=== PATIENT | male | born 1960 | race Caucasian/White ===

== ENCOUNTER 2023-11-12 12:09 | Outpatient (CLI) | payer OTHER, SELFPAY ==
[2023-11-12 12:42] LABS: Anion Gap 12 mmol/L (4-12); Blood Urea Nitrogen 23 mg/dL (9-20); Calcium 9.4 mg/dL (8.4-10.2); Carbon Dioxide 25 mmol/L (22-30); Chloride 100 mmol/L (98-107); Estimated Glomerular Filt Rate 47; Glucose 120 mg/dL (65-110); Sodium 137 mmol/L (137-145)
[2023-11-12 13:32] LABS: Hematocrit 52.8 % (42.0-52.0); Hemoglobin 17.2 g/dL (14.0-18.0)
== END 2023-11-12 12:10 | disposition home or self-care (01) ==
LOC: ANHSURGERY 12:19
PROVIDERS: Anesthesiology; PCP Physician Assistant; Visit Provider Surgery Plastic and Reconstructive Surgery
DX: N62 Hypertrophy of breast (principal)
CPT/HCPCS: 36415; 80048; 85014; 85018

== ENCOUNTER 2023-11-15 01:02 | Day surgery (SDC) | payer OTHER, SELFPAY ==
[2023-11-08 14:25] VITALS: BMI 40.4
--- NOTE | 2023-11-08 14:58 | SUR.PREOP ---
Report to the Outpatient Waiting Room, entrance under the green pavilion located off [facility], at time 1000 on date 11/15/2023. Planned Procedure Time:1200.? Time changes happen often and if your time is changed the preop area will call you the afternoon before. - You and your visitor will be asked to self-screen and do not enter if you have any COVID symptoms. Please call surgeon if you need to reschedule. - A mask is optional within the hospital at this time. Patients may have clear liquids (water, carbonated beverages, clear teas, apple juice) until 3 hours prior to surgery with a maximum of 20 ounces. - No food from midnight until time of surgery and no smoking - Infants may have breast milk until 4 hours before surgery, formula 6 hours prior to surgery. - Children will be allowed to drink immediately following surgery.? If applicable, please bring a bottle or sippy cup to assist with drinking. Juice, water, soda, and popsicles are readily available.? For infants on formula, please bring formula the day of surgery.? Pacifiers are allowed. Take only the following medications with a SIP of water on the morning of surgery: Breo ellipta, nasal spray DO NOT STOP ANY OF YOUR OTHER PRESCRIPTION MEDICATIONS PRIOR TO SURGERY EXCEPT THE FOLLOWING Medications to discontinue per physician: Aspirin per Dr. Sosa, Multivitamin per Anesthesia Date to take last dose: vitamin- 3 days, Aspirin stopped 11/01/23 Please no make-up, nail lithuanian, hairspray, perfume, deodorant, or body powder the day of surgery.? No jewelry (including any body piercings) or valuables the day of surgery, leave them at home.? Please take a shower or bath the night before, or the morning of, surgery with an antibacterial soap.? Wear comfortable, loose fitting clothing.? Children are encouraged to wear pajamas. - Jewelry must be removed prior to entering the operating room.? Rings and piercings that are not removed may be cut off. - The hospital will not accept responsibility for valuables.? - Please leave all valuables, including medications, at home the day of surgery. If you are going home after surgery, a licensed transit bus driver must drive you home.? - NO public transportation without another adult if you receive anesthesia. - We recommend that an adult stay with you for 24 hours following discharge. - We also recommend that you do not drive, make important decision, drink alcoholic beverages, or take any drugs that were not prescribed by your health care provider for at least 24 hours after your discharge time. For Pediatric surgeries, we recommend two adults accompany the child home. Follow any additional instructions given to you from your surgeon. Telephone instructions given to patient and asked if any additional questions and then verbalized understanding. Patient advised to call surgeon office or pre surgery nurse liaison [phone] if any additional questions.
[2023-11-15] VITALS (12 sets, daily range): BP systolic 136–205; BP diastolic 57–90; PULSE 70–96; RESP 14–18; TEMP 36.3–36.4; O2SAT 94–100
--- NOTE | 2023-11-15 08:42 | WPDANESEPPF ---
Anes - Initial Pre Proc Eval Procedure: Operation Date: 11/15/23 12:00 Proposed Procedures p Treatment of Gynecomastia with Liposuction and Skin Excision - Sumit Sosa MD Date/Time: 11/15/23 08:42 Surgeon: Sumit Sosa MD Pre Op Diagnosis: gynecomastia Patient Data Age: 63 Gender: M Height: 1.68 m Weight: 113.6 kg Allergies Allergy/AdvReac Type Severity Reaction Status Date / Time No Known Allergies Allergy Verified 11/15/23 10:18 Home Medications Medication Instructions Recorded Confirmed Type allopurinol 100 mg tablet 100 mg PO DAILY 11/08/23 11/08/23 History aspirin 81 mg tablet 81 mg PO DAILY 11/08/23 11/08/23 History ezetimibe 10 mg tablet (Zetia) 10 mg PO DAILY 11/08/23 11/08/23 History fluticasone furoate 100 See Rx Instructions .Route .COMPLEX 11/08/23 11/08/23 History mcg-vilanterol 25 mcg/dose inhalation powder (Breo Ellipta) fluticasone propionate 50 2 spray intranasal DAILY 11/08/23 11/08/23 History mcg/actuation nasal spray,suspension levocetirizine 5 mg tablet (Xyzal) 5 mg PO DAILY 11/08/23 11/08/23 History lisinopril 20 1 tablet PO DAILY 11/08/23 11/08/23 History mg-hydrochlorothiazide 12.5 mg tablet multivitamin with minerals-folic 0.4 tablet PO DAILY 11/08/23 11/08/23 History acid 0.4 mg tablet rosuvastatin 40 mg tablet 40 mg PO DAILY 11/08/23 11/08/23 History Patient hx anesthesia problems: none Family hx anesthesia problems: none Results Review: All pre-operative results and documents have been reviewed as part of the pre-operative evaluation. [facility] Past Medical History Medical History (Updated 11/15/23 @ 08:43 by Thomas Garcia DO) Gout Hyperlipidemia Hypertension GARY (obstructive sleep apnea) CPAP Social History Social History Smoking packs per day: 1 Smoking cigarettes per day: 20.0 Years smoked: 20 Smoking pack-years: 20.00 Smoking status: Former smoker Tobacco type: cigarettes Smoking end date: 10/10/99 Alcohol intake: current Drinks per week: 2 Substance use: never Living arrangements: with family Spiritual care concerns: No Anes - Eval Final PreProcedure Day of Procedure 11/15/23 08:42 Patient weight: morbidly obese Heart: regular rate and rhythm Lungs: clear to auscultation Airway: Mallampati scale class II Neurological: alert and oriented Last oral intake: >/= 8 hours ASA classification: III Emergent: no Anesthetic plan: proceed Anesthesia type and monitoring: general ETT and standard monitoring Results Review: All pre-operative results and documents have been reviewed as part of the pre-operative evaluation. Informed Consent: The patient's anesthetic plan and its attendant risks and benefits were discussed with the patient/family/POA. Questions were solicited and answers provided to the satisfaction of the patient/family/POA.
[2023-11-15] MEDS: LACTATED RINGERS 1,000 ML 30 ML IV CONT ×3 (10:33→16:32)
[2023-11-15 11:33] LABS: Urine Cotinine NEGATIVE
--- NOTE | 2023-11-15 11:36 | WPDHPUPDATE1 ---
History and Physical Update Update Date/Time: 11/15/23 11:36 History and Physical has been reviewed, including an updated exam of the patient. There are NO changes in the patient's condition. Risks, benefits, and alternatives have been discussed and questions answered. Patient agrees to proceed with procedure.
--- NOTE | 2023-11-15 11:36 | W.PM.PROC2 ---
Procedure Note - Detailed Date of Procedure 11/15/23 Pre-op Diagnosis gynecomastia Post-op Diagnosis Same Procedure Performed Bilateral excision gynecomastia with suction lipectomy and skin excision. Surgeon Sumit Sosa MD Anesthesia General Findings Lipoaspirate: 3,000 cc Description of Procedure He is here today for the above procedure. Previously and again today the risks, benefits, alternatives were discussed in extensive detail. I wanted him to be very realistic about the risks involved as well as expectations. We discussed aftercare and what to monitor for. Discussed realistic expectations of outcome. Made sure I answered all of questions to satisfaction today and consent was obtained. He was marked in the preoperative holding area with his verification. The patient was taken to the operating room placed supine on the operating table. Anesthesia was provided by anesthesiology. Placed prone on the operating room table. Prepped and draped in a standard sterile fashion. A surgical time-out was taken. Stab incisions were made and I tumesced with a tumescent solution. I then proceeded with suction lipectomy based on S.A.F.E. technique using a 5mm basket and 4mm Kianna cannula. This was in multiple planes and passes and based on pre-operative planning, intraoperative observation, and rolling pinch test which was in full agreement. Access sites closed with 3-0 Nylon. Patient was then transferred to a stretcher and returned to the bed supine. Prepped and draped in a standard sterile fashion. Stab incisions were made and I tumesced with a tumescent solution. I then proceeded with suction lipectomy based on S.A.F.E. technique using a 5mm basket and 4mm Kianna cannula. This was in multiple planes and passes and based on pre-operative planning, intraoperative observation, and rolling pinch test which was in full agreement. A 15 blade was used to make a stab incision along the planned incision line. I elevated inferiorly estimating the excess skin to be resected with limited undermining. Also elevated a small area superior for NAC inset. The inferior flap was marked and a pedicle with the NAC was deepithelialized. Excess skin was trimmed and I closed with 2-0 Vicryl 3 point suture. I marked out the NAC for new location 28-32mm and this tissue was deepithelialized then incised for NAC inset. Areola inset with 3-0 Monocryl and 4-0 Monocryl with tissue glue. Incision was closed with 2-0 Vicryl, 3-0 Monocryl, and running subcuticular 4-0 Monocryl. Dressing was placed. Patient was awoke and taken to PACU without difficulty. All instrument and sponge counts were correct at the end of the case. Estimated Blood Loss 100 Drains No Packing No Pathology None sent Complications No immediate complications Condition Stable Disposition PACU
[2023-11-15] MEDS: TRANEXAMIC ACID 1,000MG/ISO100 1,000 MG/100 ML BAG 200 MG IVPB (11:59)
[2023-11-15] MEDS: ceFAZolin 2 GM/D5W 50 ML 2 GM/50 ML BAG IVPB (12:25)
[2023-11-15] MEDS: LACTATED RINGERS IRRIG 1,000 ML, LIDOCAINE HCL 1% LOCAL INJ 50 ML, EPINEPHrine HCL INJ ... INFILTRATE (16:05)
[2023-11-15] MEDS: LABETALOL HCL INJ 100 MG/20 ML VIAL IV PUSH (16:57)
[2023-11-15] MEDS: hydrALAZINE HCL 20 MG/ML VIAL 10 MG IV PUSH (17:10)
[2023-11-15] MEDS: oxyCODONE HCL (*CRX) 5 MG TAB IR PO (17:43)
== END 2023-11-15 18:20 | disposition home or self-care (01) ==
PROVIDERS: PCP Physician Assistant; Visit Provider Surgery Plastic and Reconstructive Surgery
PROC: (CPT 19300; principal; 2023-11-15 12:00)
DX: N62 Hypertrophy of breast (principal); I10 Essential (primary) hypertension; E78.5 Hyperlipidemia, unspecified; G47.33 Obstructive sleep apnea (adult) (pediatric); M10.9 Gout, unspecified; E66.01 Morbid (severe) obesity due to excess calories; Z68.41 Body mass index [BMI] 40.0-44.9, adult; Z87.891 Personal history of nicotine dependence; Z79.82 Long term (current) use of aspirin; Z79.51 Long term (current) use of inhaled steroids
CPT/HCPCS: 19300; 80307; A9270; J0171; J0360; J0690; J1100; J1170; J2250; J2405; J2704; J3010; J7120

== ENCOUNTER 2023-12-18 14:02 | Outpatient (NON) | payer OTHER, SELFPAY | END 2023-12-18 14:03 | disposition home or self-care (01) | LOC: ANHLAB 14:04 | PROVIDERS: PCP Physician Assistant; Visit Provider Surgery Plastic and Reconstructive Surgery | DX: S21.002A Unspecified open wound of left breast, initial encounter (principal); B96.83 Acinetobacter baumannii as the cause of diseases classified elsewhere; Y83.8 Other surgical procedures as the cause of abnormal reaction of the patient, or of later complication, without mention of misadventure at the time of the procedure | CPT/HCPCS: 87070; 87075; 87181; 87186; 87205 ==